=== PATIENT | male | born 1945 | race Caucasian/White ===

== ENCOUNTER → 2017-03-08 | Outpatient (REF) | payer MEDICARE, BC ==
[~2017-03-08] MED LIST: ASPI81TA3 OR; PERC5TAB8 OR
== END ==
LOC: M LAB REF 17:21
PROVIDERS: ATTEND Internal Medicine
DX: N40.0 Benign prostatic hyperplasia without lower urinary tract symptoms (principal)

== ENCOUNTER 2020-04-06 09:30 | Inpatient (IN) | payer MEDICARE, BC ==
[~2020-04-06] VITALS: Ht 190.5 cm; Wt 97.5 kg
[~2020-04-06 09:30] MED LIST changes: +ASPI81TA86 PO; +BETI1SOL OU; +BIMA01SOL OD; +IBUP-1022 PO
--- NOTE | 2020-04-11 17:37 | HPE ---
DATE OF ANTICIPATED ADMISSION: 04/14/2020 ATTENDING PHYSICIAN: Jorge Red MD CHIEF COMPLAINT: Left hip pain and stiffness. HISTORY: This is a 74-year-old male patient with progressively worsening left hip pain and stiffness who has failed to improve with conservative management and he has elected for a hip replacement on the left side. He has been consented by Dr. Red for a left total hip arthroplasty for his persistent symptoms. He has end-stage osteoarthritis on his x-rays of his left hip. He has pain with weightbearing activities and activities of daily living. Medical optimization by Dr. Rivas. ALLERGIES: No known drug allergies. CURRENT MEDICATIONS: - Motrin 200 mg as needed, he is going to stop that 7 days prior to surgery He does use [id number] eye drops, he will bring them with him to the hospital. He was counseled about the risk and use of nonsteroidal anti-inflammatory drugs (NSAIDs) and the importance to stop at least 5 days prior to surgery. MEDICAL HISTORY: None. SURGICAL HISTORY: He has had a knee replacement and a hip replacement. FAMILY HISTORY: Arthritis and hypertension. SOCIAL HISTORY: He does not smoke. He occasionally uses alcohol. REVIEW OF SYSTEMS: Denies fever or chills. Denies chest pain, shortness of breath, or cough. Denies difficulty breathing. Denies abdominal pain. Denies exposure to COVID-19. Denies any worsening of his chronic conditions. Does note persistent worsening hip pain on the left side and pain with weightbearing activities, has to use a cane for ambulation. Denies any nausea or vomiting. PHYSICAL EXAMINATION: Exam today reveals an alert male patient. He ambulates with a limping gait and favors his left side, he does use for a cane for ambulation. There is decreased internal and external rotation of the hip on exam. Straight leg raising testing is negative. The calf is soft and nontender to palpation. Sensation is intact to light touch. The skin is intact, no signs of infection. Neck is supple without adenopathy or jugular venous distension (JVD). Lungs are clear to auscultation without rales or wheeze. Heart: Regular rate and rhythm. Abdomen: Bowel sounds are present. LABORATORY DATA: Prothrombin time13.4, INR 1.0, ESR 7, WBC count 8.4, RBC count of 5.2, hemoglobin 15.4, hematocrit 44.8, sodium 138, potassium 4.5, glucose 89, BUN 17, creatinine 0.95. Chest x-ray and EKG not present for review. Current vital signs: Pulse 88, respirations 18, blood pressure 128/92, height 74 inches, temperature 97.1, weight 218 pounds. IMPRESSION: Symptomatic osteoarthritis of the left hip. PLAN: He is consented by Dr. Red for a total hip arthroplasty. He was counseled about his pre and postoperative instructions. We did review the total joint booklet, went over his medications, discussed nonsteroidal anti- inflammatory drug (NSAID) use, stopping those at least 5 days prior to the surgery. He understands to be nothing by mouth after midnight and what nothing by mouth after midnight means. We talked about to make sure he is on time for his appointment and after his COVID test he should self-quarantine. We will see him back here postoperatively. KARIME
[2020-04-14] MEDS ORDERED: ceFAZolin SOD 2 GM in IV 1 EA IV ONE (06:00)
[2020-04-14] MEDS ORDERED: LR 1,000 ML IV ONE (06:00)
[2020-04-14] MEDS ORDERED: EPINEPHrine INJ 1 MG/ML 1ML AMP As Ordered ONE (10:08)
[2020-04-14] MEDS ORDERED: TRANEXAMIC ACID 100 MG/ML 10ML VIAL As Ordered ONE (10:08)
[2020-04-14] MEDS ORDERED: ceFAZolin 1GM VIAL (J0690 PER 500MG) As Ordered ONE (10:08)
[2020-04-14] MEDS ORDERED: BUPIVACAINE LIPOSOME/PF 1.3% 20ML VIAL (13.3MG/ML)(EXPAREL)(C9290 PER1MG) As Ordered ONE (10:08)
[2020-04-14] MEDS ORDERED: fentaNYL 100 MCG/2 ML INJECTION (J3010) As Ordered ONE (10:37)
[2020-04-14] MEDS ORDERED: MIDAZOLAM INJ 2MG/2ML VIAL (J2250 PER 1MG) As Ordered ONE (10:37)
[2020-04-14] MEDS ORDERED: ONDANSETRON 4MG/2ML VIAL As Ordered ONE (10:38)
[2020-04-14] MEDS ORDERED: LIDOCAINE 2% 100MG/5ML SDV (FOR ANES.) As Ordered ONE (10:38)
[2020-04-14] MEDS ORDERED: propofoL 500 MG/50 ML VIAL As Ordered ONE (10:38)
[2020-04-14] MEDS ORDERED: ePHEDrine SULFATE 25 MG/5 ML(5MG/ML) SYRINGE As Ordered ONE ×2 (12:47→13:08)
[2020-04-14] MEDS ORDERED: PHENYLephrine HCL 500 MCG/5 ML (100MCG/ML) SYRINGE (J2370) As Ordered ONE (12:56)
[2020-04-14] MEDS ORDERED: ACETAMINOPHEN 1000MG 100ML IV BTL (OFIRMEV) (J0131 PER 10MG) As Ordered ONE (13:05)
[2020-04-14] MEDS ORDERED: ePHEDrine INJ 50 MG/ML VIAL As Ordered ONE (13:25)
[2020-04-14] MEDS ORDERED: propofoL 200 MG/20 ML VIAL As Ordered ONE (13:38)
--- NOTE | 2020-04-14 14:36 | IPN ---
DATE: 04/14/2020 SUBJECTIVE: Patient seen and examined. He wished to go ahead with a left total hip arthroplasty. He understands the nature of this; the risks of bleeding, infection, damage to nerves or vessels, persistent pain, wear, loosening, dislocation, leg length inequality, blood clots, medical problems, among others. He actually is slightly longer on his left leg than his right by 3/4 cm and he is aware he may have some leg length inequality just in order to get a stable hip. KARIME
[2020-04-14] MEDS ORDERED: oxyCODONE 5MG TAB PO PRN (15:00)
[2020-04-14] MEDS ORDERED: fentaNYL 100 MCG/2 ML INJECTION (J3010) IV PRN (15:00)
[2020-04-14] MEDS ORDERED: HYDROMORPHONE HCL 0.5 MG/ 0.5 ML SYRINGE (J1170 PER 1) IV PRN (15:00)
[2020-04-14] MEDS ORDERED: LR 1,000 ML IV SCH (15:00)
[2020-04-14] MEDS ORDERED: ONDANSETRON 4MG/2ML VIAL IV PRN ×2 (15:00→18:00)
--- NOTE | 2020-04-14 15:03 | CR.PDOC ---
General Date of Consultation: Apr 14, 2020 Attending Physician: KASSANDRA DANIELS MD Consultation REASON FOR CONSULTATION/CHIEF COMPLAINT: Left total hip arthroplasty HISTORY OF PRESENT ILLNESS: 75-year-old male with a history of left hip osteoarthritis, 1st degree AV block, admitted for postoperative monitoring. Status post left total hip arthroplasty. He is postoperative day 0. Hospitalist service consulted for assistance in management of medical issues. ALLERGIES: Please see below. HOME MEDICATIONS: Please see below. PAST MEDICAL HISTORY: OA 1st degree AV block PAST SURGICAL HISTORY: Knee replacement R Hip replacement R FAMILY HISTORY: Arthritis Hypertension SOCIAL HISTORY: Patient denies smoking Patient reports occasional etoh use Patient denies illicit drug use REVIEW OF SYSTEMS: CONSTITUTIONAL: patient denies fevers, chills HEENT: patient denies blurred vision, loss of vision, headache,. CARDIOVASCULAR: patient denies chest pain, palpitations. RESPIRATORY: patient denies shortness of breath, cough, hemoptysis. GASTROINTESTINAL: patient denies abdominal pain, n/v/d, blood in stool. GENITOURINARY: patient denies dysuria, discharge. SKIN: patient denies rashes. MUSCULOSKELETAL: Left hip pain NEUROLOGICAL: patient denies focal weakness, numbness, seizures. PSYCHIATRIC: patient denies SI/HI. ENDOCRINE: patient denies polyuria, heat intolerance, cold intolerance. HEMATOLOGIC/LYMPHATIC: patient denies easy bruising. PHYSICAL EXAMINATION: VITAL SIGNS: Please see below. VITAL SIGNS: please see below General: NAD, comfortable HEENT: PERRLA, EOMI, sclerae clear Neck: supple, normal ROM, no JVD Respiratory: lungs CTAB, no wheeze, no rales, no crackles CVS: RRR, normal S1, S2, no murmurs Abdo: soft, no masses, no hepatosplenomegaly, BS+, no rebound tenderness Extremities: no edema, pulses 2+ MSK: Left hip incision dressing intact clean and dry. Neuro: no focal neuro deficits, moving all 4 extremities, CN2-12 intact. Strength 5/5 in all 4 extremities. No nystagmus. Psych: calm, cooperative, AAO x 3 LABORATORY DATA: Please see below. ASSESSMENT/PLAN: Mr. Payton is a pleasant 75-year-old male admitted for postoperative observation following a left total hip arthroplasty. He is post operative day 0. Hospitalist service consulted for assistance in management of medical issues. Pain well controlled. #Pain control and DVT ppx: per ortho service #Constipation: bowel regimen #Bradycardia: HR 56. 1st degree AV block. Seen on pre-op EKG. Asymptomatic. No further intervention at this time. Thank you for involving me in the care of this patient. Vital Signs/I&O Vital Signs Date Time Temp Pulse Resp B/P (MAP) Pulse Ox O2 Delivery O2 Flow Rate FiO2 04/14/20 14:41 56 18 142/65 (90) 99 Room Air 04/14/20 14:11 97 2 Allergies Coded Allergies: clindamycin (Verified Allergy, Mild, DIARRHEA FOR 2 1/2 YEARS, 03/30/20) Home Medications Scheduled Bimatoprost (Lumigan) 0.01% 2.5ML Drops, 1 DROP OD QPM for 30 Days, #2.5 (Rep orted) Timolol (Betimol) 0.25% 5ML Drops, 1 DROP OU DAILY, (Reported) Scheduled PRN Ibuprofen (Ibuprofen) 600 Mg Tablet, 400 MG PO Q6H PRN for PAIN for 5 Days, #20 (Reported) KASSANDRA DANIELS MD Apr 14, 2020 15:03
[2020-04-14 15:45] VITALS: BP 123/79
[2020-04-14 16:15] VITALS: BP 126/79
[2020-04-14 17:15] VITALS: BP 148/80
[2020-04-14] MEDS ORDERED: MORPHINE 4 MG/ML 1ML VIAL/SYRINGE (J2270) IV PRN (18:00)
[2020-04-14] MEDS ORDERED: ACETAMINOPHEN TAB 650MG DOSE (2X325MG) PO PRN (18:00)
[2020-04-14] MEDS ORDERED: MORPHINE 2 MG/ML 1ML VIAL (J2270) IV PRN (18:00)
[2020-04-14] MEDS: LR 1,000 ML IV SCH (18:02)
[2020-04-14 18:15] VITALS: BP 135/78
[2020-04-14] MEDS: PERCOCET 5MG/325MG TAB PO PRN (18:18)
[2020-04-14 19:15] VITALS: BP 148/80
[2020-04-14 20:15] VITALS: BP 133/73
[2020-04-14] MEDS: ceFAZolin SOD 2 GM in IV 1 EA IV SCH (20:43)
[2020-04-15] VITALS: BP_SYST 104; BP_SYST 112; BP_SYST 127; BP_DIAS 68; BP_DIAS 79; BP_DIAS 89
[2020-04-15 02:00] VITALS: BP 112/72
[2020-04-15] MEDS: ceFAZolin SOD 2 GM in IV 1 EA IV SCH (04:32)
[2020-04-15] MEDS: PERCOCET 5MG/325MG TAB PO PRN ×2 (05:33→17:03)
[2020-04-15 06:00] VITALS: BP 112/70
[2020-04-15 06:39] LABS: HEMATOCRIT 37.3 % (42.0-52.0); HEMOGLOBIN 12.7 g/dl (13.5-17.5); MEAN CORPUSCULAR HEMOGLOBIN 30.7 pg (27.0-33.0); MEAN CORPUSCULAR VOLUME 90.1 fl (80.0-96.0); PLATELET COUNT, AUTOMATED 230 10^3/uL (150-450); RED BLOOD COUNT 4.14 10^6/uL (4.30-6.10)
--- NOTE | 2020-04-15 07:23 | IPNPDOC ---
Date Seen The patient was seen on 04/15/20. Progress Note SUBJECTIVE: Patient was seen and examined at bedside. Pain is moderately controlled. Has issues with urination. Concern for retention. Per report, patient had 600 mL of urine and bladder. Was straight catheterized. Reports improvement in voiding this morning. Further, attempted to stand overnight to walk to bathroom, became dizzy and diaphoretic. Orthostats positive. OBJECTIVE PHYSICAL EXAMINATION: VITAL SIGNS: please see below General: NAD, comfortable HEENT: PERRLA, EOMI, sclerae clear Neck: supple, normal ROM, no JVD Respiratory: lungs CTAB, no wheeze, no rales, no crackles CVS: RRR, normal S1, S2, no murmurs Abdo: soft, no masses, no hepatosplenomegaly, BS+, no rebound tenderness Extremities: no edema, pulses 2+ MSK: Left hip incision dressing intact clean and dry. Neuro: no focal neuro deficits, moving all 4 extremities, CN2-12 intact. Strength 5/5 in all 4 extremities. No nystagmus. Psych: calm, cooperative, AAO x 3 LABORATORY DATA, IMAGING STUDIES, MICROBIOLOGY: Please see below. DVT prophylaxis ordered?: Y, xarelto 10 mg daily. ASSESSMENT/PLAN: Mr. Payton is a pleasant 75-year-old male admitted for postoperative observation following a left total hip arthroplasty. He is POD#1. Hospitalist service consulted for assistance in management of medical issues. #Pain control and DVT ppx: per ortho service #Constipation: bowel regimen #Bradycardia: HR 56. 1st degree AV block. Seen on pre-op EKG. Asymptomatic. No further intervention at this time. #Orthostatic hypotension: noted overnight on standing to go to bathroom. Encourage PO hydration. PT/OT to eval. #urinary retention: 600 cc overnight. S/p spinal anesthesia. Resolved per nursing, voiding spontaneously. Repeat bladder scan once after spontaneous void. DVT ppx: xarelto 10 mg daily per ortho. VS, I&O, 24H, Fishbone Vital Signs/I&O Vital Signs Date Time Temp Pulse Resp B/P (MAP) Pulse Ox O2 Delivery O2 Flow Rate FiO2 04/15/20 06:03 16 04/15/20 06:00 98.8 84 112/70 (84) 93 Room Air 04/14/20 14:11 2 I&O- Last 24 Hours up to 6 AM 04/15/20 06:00 Intake Total 3460 ml Output Total 1190 ml Balance 2270 ml Laboratory Data 24H LABS Laboratory Tests 2 04/15/20 00:17: Bedside Glucose (Misc Panel) 125H 04/15/20 06:25: Nucleated Red Blood Cells % (auto) 0.0 CBC/BMP Laboratory Tests 04/15/20 06:25 KASSANDRA DANIELS MD Apr 15, 2020 07:23
[2020-04-15] MEDS: MOM 30ML SUSPENSION UDC PO SCH (09:54)
[2020-04-15] MEDS: MIRALAX *UNIT DOSE* 17GM PACKET PO SCH (09:54)
[2020-04-15] MEDS: LR 1,000 ML IV SCH ×2 (09:54→23:07)
--- NOTE | 2020-04-15 11:29 | RO ---
DATE OF OPERATION: 04/14/2020 PreopERATIVE diagnosis: Left hip osteoarthritis. PostopERATIVE diagnosis: Left hip osteoarthritis. Procedure: Left total hip arthroplasty using a [place] size 8 high offset +5, 40 ball and 64 acetabular component. SURGEON: Jorge Red M.D. TALENT ACQUISITION COORDINATOR: Shannen Red ANESTHESIA: Spinal. EBL: 300. COMPLICATIONS: None. PROCEDURE: The patient was taken to the operating room and placed in the right lateral decubitus position after spinal anesthesia was induced. The left hip and leg were prepped and draped in the usual sterile fashion. Time out was performed and longitudinal incision was made over the lateral aspect of the hip. Sharp dissection was carried down through the subcutaneous tissue until the fascia was encountered. I controlled hemostasis with cautery. I then incised the fascia and exposed the abductors and divided the anterior 40% of the abductors off. We gradually externally rotated the femur as we exposed the head and proximal femur. I split the labrum, did have some difficulty dislocating the hip. He ended up having a very large femoral head. I then used the canal-initiating reamer followed by the canal-finding reamer, the lateralizing reamer and then I sequentially reamed up to a size 7 initially and then made the neck cut at about fingersbreadth up from the lesser trochanter, removed the head which was severely arthritic and then prepared the acetabulum. Anterior and posterior retractors were placed. This was relatively difficult to get access to, the tissues were pretty tight but I was able to get it cleared off and then sequentially reamed up to size 63 which had good bleeding bone and good concentric reaming. I then impacted in size 64 acetabular component in appropriate amount of anteversion, horizontal tilt. This was well seated. I had irrigated prior to this. I placed the apex hole eliminator followed by the 64 x 40 polyethylene which was impacted into place and made sure this was seated. The canal was then prepared. I sequentially broached up to a size 7 but this countersunk some and I decided to go to an 8 so I was able to ream up to size 8 and then go to the 8 broach. Excellent fit was noted. Trial components were placed. I used high offset +1.5 and +5; +5 had the most appropriate soft tissue tension and stability, there was no impingement, excellent stability in external rotation, extension, flexion, internal rotation and there was minimal shuck. I then removed the trial components. I had removed some osteophyte from the anterior aspect of the acetabulum. The canal was irrigated and I placed a high offset size 8 stem, impacted this down, dried the taper and placed the +5, 40 head, impacted into place and we reduced the hip, put the hip through range of motion and again very pleased with the position and stability. TXA and Exparel were placed in deep tissues. I repaired the minimus with #1 Vicryl suture, the abductor repaired with #1 Vicryl suture and excellent repair was noted. He had very solid abductor tissues. I then irrigated and closed the fascia gerald with #1 Vicryl suture and running Stratafix, the subcu with 2-0 Vicryl, the skin with grey. A sterile dressing was applied. He was taken to the recovery room in stable condition. There were no known complications. The plan will be routine postop. The medical practice assistant was instrumental in holding retractors and assisting in reducing and dislocating the hip and assisting in wound closure. KARIME
[2020-04-15 11:38] VITALS: BP_SYST 100; BP_SYST 127; BP_SYST 99; BP_DIAS 61; BP_DIAS 62; BP_DIAS 73
[2020-04-15 14:00] VITALS: BP 103/54
[2020-04-15] MEDS ORDERED: RIVAROXABAN 10 MG TAB (XARELTO) PO SCH (18:00)
[2020-04-15 22:00] VITALS: BP 111/63
[2020-04-16 06:00] VITALS: BP 112/64
[2020-04-16 06:02] LABS: HEMATOCRIT 36.2 % (42.0-52.0); HEMOGLOBIN 12.2 g/dl (13.5-17.5); MEAN CORPUSCULAR HEMOGLOBIN 30.7 pg (27.0-33.0); MEAN CORPUSCULAR HGB CONC 33.7 g/dl (32.0-36.5); MEAN CORPUSCULAR VOLUME 91.2 fl (80.0-96.0); PLATELET COUNT, AUTOMATED 214 10^3/uL (150-450); RED BLOOD COUNT 3.97 10^6/uL (4.30-6.10); WHITE BLOOD COUNT 10.9 10^3/uL (4.0-10.0)
[2020-04-16] MEDS: PERCOCET 5MG/325MG TAB PO PRN (06:22)
[2020-04-16 06:24] VITALS: BP_SYST 114; BP_SYST 93; BP_DIAS 52; BP_DIAS 66
--- NOTE | 2020-04-16 07:17 | IPNPDOC ---
Date Seen The patient was seen on 04/16/20. Progress Note SUBJECTIVE: patient was seen and examined at bedside. No acute events overnight. Voiding spontaneously. PVRs improved. Working with PT/OT. OBJECTIVE PHYSICAL EXAMINATION: VITAL SIGNS: please see below General: NAD, comfortable HEENT: PERRLA, EOMI, sclerae clear Neck: supple, normal ROM, no JVD Respiratory: lungs CTAB, no wheeze, no rales, no crackles CVS: RRR, normal S1, S2, no murmurs Abdo: soft, no masses, no hepatosplenomegaly, BS+, no rebound tenderness Extremities: no edema, pulses 2+ MSK: Left hip incision dressing intact clean and dry. Neuro: no focal neuro deficits, moving all 4 extremities, CN2-12 intact. Strength 5/5 in all 4 extremities. No nystagmus. Psych: calm, cooperative, AAO x 3 LABORATORY DATA, IMAGING STUDIES, MICROBIOLOGY: Please see below. DVT prophylaxis ordered?: Y, xarelto 10 mg daily. ASSESSMENT/PLAN: Mr. Payton is a pleasant 75-year-old male admitted for postoperative observation following a left total hip arthroplasty. He is POD#2. Hospitalist service consulted for assistance in management of medical issues. #Pain control and DVT ppx: per ortho service #Constipation: bowel regimen #Bradycardia: HR 56. 1st degree AV block. Seen on pre-op EKG. Asymptomatic. No further intervention at this time. #Orthostatic hypotension: orthosatic. Encourage PO hydration. PT/OT, patient mobility improving significantly. #urinary retention: improved, voiding spontaneously. PVR 04/15/20 600 > 140. S/p spinal anesthesia. DVT ppx: xarelto 10 mg daily per ortho. VS, I&O, 24H, Fishbone Vital Signs/I&O Vital Signs Date Time Temp Pulse Resp B/P (MAP) Pulse Ox O2 Delivery O2 Flow Rate FiO2 04/16/20 06:24 100 93/52 (66) 98 93/52 (66) 82 114/66 (82) 04/16/20 06:22 16 04/16/20 06:00 97.8 96 Room Air 04/14/20 14:11 2 I&O- Last 24 Hours up to 6 AM 04/16/20 06:00 Intake Total 2286 ml Output Total 1650 ml Balance 636 ml Laboratory Data 24H LABS Laboratory Tests 2 10/16/20 05:29: Nucleated Red Blood Cells % (auto) 0.0 CBC/BMP Laboratory Tests 04/16/20 05:29 KASSANDRA DANIELS MD Apr 16, 2020 07:17
[2020-04-16] MEDS ORDERED: PERC5TAB12 PO (08:20)
[2020-04-16] MEDS ORDERED: XARE10TA PO (08:20)
[2020-04-16] MEDS: MIRALAX *UNIT DOSE* 17GM PACKET PO SCH (08:48)
[2020-04-16] MEDS: MOM 30ML SUSPENSION UDC PO SCH (08:48)
--- NOTE | 2020-04-19 10:22 | REP ---
LEFT HIP SERIES CLINICAL: Postoperative baseline evaluation. TECHNIQUE: AP and cross-table lateral views of the left hip. FINDINGS: Patient is status post left hip replacement. Normal positioning and appearance to the acetabular and femoral components. Overlying postsurgical changes noted. IMPRESSION: Status post left hip replacement. MTDD
--- NOTE | 2020-04-21 07:21 | DS ---
DATE OF ADMISSION: 04/14/2020 DATE OF DISCHARGE: 04/16/2020 ATTENDING PHYSICIAN: Dr. Jorge Red ADMITTING DIAGNOSIS: Left hip osteoarthritis. DISCHARGE DIAGNOSIS: Left hip osteoarthritis, status post left total hip arthroplasty. HISTORY: Patient is a 75-year-old male who had progressively worsening left hip pain and stiffness. He failed to improve with conservative measures. He continued to have symptoms with weightbearing activities and activities of daily living. He consented for an elective left total hip arthroplasty with Dr. Red for his continued symptoms. OPERATION PERFORMED: Left total hip arthroplasty. HOSPITAL COURSE: The patient underwent a left total hip arthroplasty under spinal anesthesia, which was uneventful. His hospital course was without complication, and he was up with physical therapy per their protocol, weightbearing as tolerated on the left lower extremity. Patient was discharged on oral pain medications and will resume his preoperative medications and diet. He will use his thromboembolic deterrent stockings and take his anticoagulant as directed to prevent deep venous thrombosis. Patient will followup in our office in 12-14 days for a wound check and staple removal. He is encouraged to contact our office sooner if there is any increase in pain, redness, drainage, numbness or tingling in the extremity, fever greater than 101 degrees, or any other concerns. Please see medical records for additional details. seth Hu
== END 2020-04-16 12:45 | disposition home or self-care (01) | DRG 470 ==
LOC: M OR 04-14 09:58 → M MS5PR 04-14 15:35
PROVIDERS: ADMIT Orthopaedic Surgery; ATTEND Orthopaedic Surgery
PROC: 0SRB02Z Replacement of Left Hip Joint with Metal on Polyethylene Synthetic Substitute, Open Approach (ICD-10-PCS; principal; 2020-04-14 11:00)
DX: M16.12 Unilateral primary osteoarthritis, left hip (principal); R26.89 Other abnormalities of gait and mobility; I44.0 Atrioventricular block, first degree; K59.00 Constipation, unspecified; I95.1 Orthostatic hypotension; R33.9 Retention of urine, unspecified; H40.9 Unspecified glaucoma; E78.00 Pure hypercholesterolemia, unspecified; Z79.899 Other long term (current) drug therapy; Z88.1 Allergy status to other antibiotic agents; Z96.651 Presence of right artificial knee joint; Z96.641 Presence of right artificial hip joint

== ENCOUNTER → 2020-04-07 | Outpatient (CLI) | payer MEDICARE, BC ==
[~2020-04-07] MED LIST changes: +PERC5TAB12 PO; +XARE10TA PO
[2020-04-07 12:46] LABS: HEMATOCRIT 44.8 % (42.0-52.0); HEMOGLOBIN 15.4 g/dl (13.5-17.5); MEAN CORPUSCULAR HEMOGLOBIN 30.7 pg (27.0-33.0); MEAN CORPUSCULAR HGB CONC 34.4 g/dl (32.0-36.5); MEAN CORPUSCULAR VOLUME 89.2 fl (80.0-96.0); PLATELET COUNT, AUTOMATED 301 10^3/uL (150-450); RED BLOOD COUNT 5.02 10^6/uL (4.30-6.10); WHITE BLOOD COUNT 8.4 10^3/uL (4.0-10.0)
[2020-04-07 12:57] LABS: PROTHROMBIN TIME 13.4 SECONDS (12.5-14.3)
[2020-04-07 13:09] LABS: ERYTHROCYTE SEDIMENTATION RATE 7 mm/hr (0-20)
[2020-04-07 13:16] LABS: ALBUMIN 3.6 GM/DL (3.2-5.2); ALT/SGPT 22 U/L (12-78); BILIRUBIN,TOTAL 0.6 MG/DL (0.2-1.0); BLOOD UREA NITROGEN 17 MG/DL (7-18); CALCIUM LEVEL 8.7 MG/DL (8.8-10.2); CARBON DIOXIDE LEVEL 26 MEQ/L (21-32); CHLORIDE LEVEL 109 MEQ/L (98-107); CREATININE FOR GFR 0.95 MG/DL (0.70-1.30); GLOMERULAR FILTRATION RATE > 60.0 (>42); GLUCOSE, FASTING 89 MG/DL (70-100); POTASSIUM SERUM 4.5 MEQ/L (3.5-5.1); SODIUM LEVEL 138 MEQ/L (136-145); TOTAL PROTEIN 7.1 GM/DL (6.4-8.2)
--- NOTE | 2020-04-08 19:31 | ECGEPIP ---
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
--- NOTE | 2020-04-14 14:43 | REP ---
CHEST X-RAY: 2-VIEWS (REPEAT DICTATION) HISTORY: Left hip osteoarthritis. FINDINGS: The lungs are symmetrically aerated and clear. The pleural angles are sharp. The heart is not enlarged. The thoracic aorta is somewhat tortuous. Pulmonary vasculature is not increased. No significant bony abnormality is seen. IMPRESSION: No active disease. MTDD
== END ==
LOC: M LAB 11:54
PROVIDERS: ATTEND Orthopaedic Surgery
DX: Z01.818 Encounter for other preprocedural examination (principal); M16.12 Unilateral primary osteoarthritis, left hip; I44.0 Atrioventricular block, first degree; Z79.01 Long term (current) use of anticoagulants

== ENCOUNTER → 2020-04-09 | Outpatient (CLI) | payer MEDICARE, BC | LOC: M LABSMTC 12:08 | PROVIDERS: ATTEND Anesthesiology | DX: Z01.812 Encounter for preprocedural laboratory examination (principal); Z20.828 Contact with and (suspected) exposure to other viral communicable diseases | CPT/HCPCS: C9803; U0003 ==

== ENCOUNTER → 2022-04-04 | Outpatient (CLI) | payer MEDICARE, BC | LOC: M RAD 12:30 | PROVIDERS: ATTEND Internal Medicine | DX: G45.3 Amaurosis fugax (principal) ==

== ENCOUNTER → 2025-05-11 | Outpatient (CLI) | payer MEDICARE, BC ==
[~2025-05-11] MED LIST changes: -BETI1SOL OU; -IBUP-1022 PO; +IBUP600T42 PO; +PROHANCE 279.3MG/ML 15ML VIAL As Ordered ONE; +PROHANCE 279.3MG/ML 5ML VIAL As Ordered ONE; +TIMO5DRO5 OU
== END ==
LOC: M RAD 14:50
PROVIDERS: ATTEND Physician Assistant
DX: R97.20 Elevated prostate specific antigen [PSA] (principal)
CPT/HCPCS: 72197; A9579